=== PATIENT | female | born 1965 | race Caucasian/White ===

== ENCOUNTER 2024-02-19 19:22 | Emergency (ER) | payer BC ==
[2024-02-19] MEDS: EPINEPHrine 1 MG/ML SDV IM ONE (19:31)
[2024-02-19] MEDS: diphenhydrAMINE 50 MG/ML SDV IVPUSH ONE (19:31)
[2024-02-19] MEDS: methylPREDNISolone Sodium Succinate 125 MG/2 ML SDV IVPUSH ONE (19:31)
== END 2024-02-19 23:35 | disposition home or self-care (01) ==
LOC: JP.ED 19:22
DX: T63.441A Toxic effect of venom of bees, accidental (unintentional), initial encounter (principal); Z91.030 Bee allergy status; Z91.041 Radiographic dye allergy status; Z88.8 Allergy status to other drugs, medicaments and biological substances; Z79.899 Other long term (current) drug therapy; Z87.891 Personal history of nicotine dependence
CPT/HCPCS: 96372; 96374; 96375; 99283; J0171; J1200; J2919

== ENCOUNTER 2025-06-13 13:13 | Emergency (ER) | payer BC | END 2025-06-13 15:47 | disposition home or self-care (01) | LOC: JP.ED 13:13 | DX: S60.417A Abrasion of left little finger, initial encounter (principal); J45.909 Unspecified asthma, uncomplicated; Z79.899 Other long term (current) drug therapy; Z90.49 Acquired absence of other specified parts of digestive tract; Z91.030 Bee allergy status; Z88.5 Allergy status to narcotic agent; Z88.8 Allergy status to other drugs, medicaments and biological substances; Z91.041 Radiographic dye allergy status; W29.0XXA Contact with powered kitchen appliance, initial encounter; Y92.009 Unspecified place in unspecified non-institutional (private) residence as the place of occurrence of the external cause | CPT/HCPCS: 99282; 99283 ==